=== PATIENT | male | born 1955 | race Asian ===

== ENCOUNTER 2018-08-17 11:58 | Inpatient (IN) | payer OTHER ==
[~2018-08-17] VITALS: Ht 182.9 cm; Wt 81.2 kg
[2018-08-17] MEDS: D5 1/2NS 1,000 ML IV SCH (08:50)
[~2018-08-17 11:58] MED LIST: NKM
[2018-08-17 12:00] VITALS: BP 139/94
--- NOTE | 2018-08-17 12:00 | NUR ---
ED Nurse Note: pt brought in by [facility] c/o n/v/vertigo started today, denies diarrhea or abd pain, per daughter statement, pt had flu like s/s for about a week (cough, nasal congestion). Per daughter statement, pt has hx high cholesterol, but unable to state which meds he takes and takes only occasionally. Pt AA&ox4, gcs=15, skin warm and dry, + mild jaundice , resp even and unlabored, airway intact, +n/v, productive cough w/ yellow thick mucus, active bs, ambulates w/ steady gait w/ assist. pt NSR on personnel monitor, afebrile temp 97.7, VSS, will cont monitor, daughter at the bedside.
[2018-08-17] MEDS ORDERED: cholesterol meds (12:08)
--- NOTE | 2018-08-17 12:08 | NUR ---
ED Nurse Note: per daughter, pt occasionally took cholesterol med. unable to provide name of meds.
[2018-08-17 12:17] LABS: BASOPHILS % (AUTO) 0.6 % (0.0-2.0); EOSINOPHILS % (AUTO) 0.7 % (0.0-3.0); HEMATOCRIT 41.9 % (42.0-52.0); LYMPHOCYTES % (AUTO) 13.3 % (20.0-45.0); MEAN CORPUSCULAR VOLUME 91 FL (80-99); MONOCYTES % (AUTO) 4.5 % (1.0-10.0); NEUTROPHILS % (AUTO) 80.9 % (45.0-75.0); PLATELET COUNT 285 K/UL (150-450); RED BLOOD COUNT 4.58 M/UL (4.70-6.10); RED CELL DISTRIBUTION WIDTH 11.9 % (11.6-14.8); WHITE BLOOD COUNT 13.5 K/UL (4.8-10.8)
--- NOTE | 2018-08-17 12:25 | NUR ---
ED Nurse Note: SN=[id number], ERMD notified
[2018-08-17 12:28] LABS: ANION GAP 11 mmol/L (5-15); BLOOD UREA NITROGEN 20 mg/dL (7-18); CALCIUM 9.5 MG/DL (8.5-10.1); CARBON DIOXIDE 26 MMOL/L (21-32); CHLORIDE 102 MMOL/L (98-107); CREATININE 0.8 MG/DL (0.55-1.30); SODIUM 139 MMOL/L (136-145)
[2018-08-17 12:30] VITALS: BP 143/93
[2018-08-17] MEDS ORDERED: Meclizine 25mg tab ORAL ONE ×2 (12:30→14:30)
[2018-08-17 12:33] LABS: ALANINE AMINOTRANSFERASE 27 U/L (12-78); ALKALINE PHOSPHATASE 75 U/L (46-116); ASPARTATE AMINO TRANSFERASE 20 U/L (15-37); BILIRUBIN,TOTAL 0.5 MG/DL (0.2-1.0)
--- NOTE | 2018-08-17 13:06 | NUR ---
ED Nurse Note: pt off to ct
[2018-08-17 13:11] LABS: APPEARANCE,URINE CLEAR; BILIRUBIN, URINE NEGATIVE (NEGATIVE); GLUCOSE, URINE (UA) NEGATIVE (NEGATIVE); KETONES,URINE 3+ (NEGATIVE); LEUKOCYTE ESTERASE ,URINE 1+ (NEGATIVE); NITRITE,URINE NEGATIVE (NEGATIVE); PH,URINE 7 (4.5-8.0); PROTEIN,URINE NEGATIVE (NEGATIVE); UROBILINOGEN,URINE NORMAL MG/DL (0.0-1.0)
[2018-08-17 13:25] LABS: COLOR,URINE YELLOW
--- NOTE | 2018-08-17 13:56 | Diagnostic Imaging Report ---
Indication: Headache Technique: Contiguous 5 mm thick transaxial imaging of the head obtained in a Siemens Sensation [address] scanner. Soft tissue and bone windows generated. Automatic Exposure Control was utilized. Total Dose length Product (DLP): 1495.[address] Dose Index Volume (CTDIvol): 70.38 mGy Comparison: none Findings: The size and configuration of the cortical sulci, basal cisterns, and ventricles are within normal limits for age. There is no mass effect, midline shift, or edema identified. There is no evidence of acute hemorrhage or abnormal intra-axial or extra-axial fluid collections. The bones and soft tissues are unremarkable. Mucosal thickening noted within the visualized paranasal sinuses. Impression: No mass effect, edema or acute bleed. Sinusitis The CT scanner at [facility] is accredited by the [employer] and the scans are performed using dose optimization techniques as appropriate to a performed exam including Automatic Exposure control.
--- NOTE | 2018-08-17 14:20 | NUR ---
ED Nurse Note: pt c/o dizzines and vertigo, pt states medication helped a little bit, ERMD notified.
[2018-08-17] MEDS ORDERED: Augmentin 875mg Tab ORAL ONE (14:30)
--- NOTE | 2018-08-17 14:44 | Emergency Room Report ---
History of Present Illness General Chief Complaint: Vomiting Source: Patient, Family Member Present Illness HPI This patient has had upper respiratory illness for the past week. He has had sore throat, cough, nasal congestion. Today, he developed recurrent nausea and vomiting. He states he also has a spinning sensation. This is worse with eye opening and movement. She denies fever or chills. He denies neck pain or stiffness. He denies chest pain or shortness of breath. He denies abdominal pain. He has no other complaints. Allergies: Coded Allergies: No Known Allergies (Unverified , 08/17/18) Patient History Past Medical History: none, see triage record Social History: Denies: smoking, alcohol use, drug use Reviewed Nursing Documentation: PMH: Agreed; PSxH: Agreed Nursing Documentation-PMH Past Medical History: No Stated History Review of Systems All Other Systems: negative except mentioned in HPI Physical Exam Vital Signs Date Time Temp Pulse Resp B/P (MAP) Pulse Ox O2 Delivery O2 Flow Rate FiO2 08/17/18 11:51 97.9 95 20 145/87 98 Room Air Sp02 EP Interpretation: reviewed, normal General Appearance: no apparent distress, alert, GCS 15, non-toxic Head: normocephalic, atraumatic Eyes: bilateral eye normal inspection, bilateral eye PERRL ENT: hearing grossly normal, normal pharynx, no angioedema, normal voice Neck: full range of motion, supple/symm/no masses Respiratory: chest non-tender, lungs clear, normal breath sounds, no respiratory distress, no retraction, no accessory muscle use, speaking full sentences Cardiovascular #1: regular rate, rhythm, no edema Gastrointestinal: normal bowel sounds, non tender, soft, non-distended, no guarding, no rebound Rectal: deferred Musculoskeletal: back normal, normal range of motion, non-tender Neurologic: alert, oriented x3, responsive, motor strength/tone normal, sensory intact, speech normal Psychiatric: judgement/insight normal, memory normal, mood/affect normal, no suicidal/homicidal ideation Skin: normal color, no rash, warm/dry, well hydrated Medical Decision Making Diagnostic Impression: Primary Impression: Intractable vertigo Additional Impressions: Intractable vomiting Sinusitis ER Course This patient is found to have sinusitis. He also has findings on history and physical exam consistent with positional vertigo. This appears to be peripheral. I did obtain a CT of the head which only showed findings consistent with sinusitis. He could also have a labyrinthitis. Regardless, despite treatment for vertigo, the patient could not walk and was very symptomatic and vertiginous. He is admitted for further monitoring and further control of his vertigo and vomiting. Laboratory Tests Test 08/17/18 12:04 08/17/18 12:50 White Blood Count 13.5 K/UL (4.8-10.8) H Red Blood Count 4.58 M/UL (4.70-6.10) L Hemoglobin 14.0 G/DL (14.2-18.0) L Hematocrit 41.9 % (42.0-52.0) L Mean Corpuscular Volume 91 FL (80-99) Mean Corpuscular Hemoglobin 30.6 PG (27.0-31.0) Mean Corpuscular Hemoglobin Concent 33.5 G/DL (32.0-36.0) Red Cell Distribution Width 11.9 % (11.6-14.8) Platelet Count 285 K/UL (150-450) Mean Platelet Volume 6.6 FL (6.5-10.1) Neutrophils (%) (Auto) 80.9 % (45.0-75.0) H Lymphocytes (%) (Auto) 13.3 % (20.0-45.0) L Monocytes (%) (Auto) 4.5 % (1.0-10.0) Eosinophils (%) (Auto) 0.7 % (0.0-3.0) Basophils (%) (Auto) 0.6 % (0.0-2.0) Prothrombin Time 10.4 SEC (9.30-11.50) Prothrombin Time INR 1.0 (0.9-1.1) PTT 24 SEC (23-33) Sodium Level 139 MMOL/L (136-145) Potassium Level 4.0 MMOL/L (3.5-5.1) Chloride Level 102 MMOL/L (98-107) Carbon Dioxide Level 26 MMOL/L (21-32) Anion Gap 11 mmol/L (5-15) Blood Urea Nitrogen 20 mg/dL (7-18) H Creatinine 0.8 MG/DL (0.55-1.30) Estimate Glomerular Filtration Rate > 60 mL/min (>60) Glucose Level 165 MG/DL (74-106) H Calcium Level 9.5 MG/DL (8.5-10.1) Total Bilirubin 0.5 MG/DL (0.2-1.0) Aspartate Amino Transferase (AST) 20 U/L (15-37) Alanine Aminotransferase (ALT) 27 U/L (12-78) Alkaline Phosphatase 75 U/L (46-116) Troponin I 0.000 ng/mL (0.000-0.056) Total Protein 8.0 G/DL (6.4-8.2) Albumin 4.0 G/DL (3.4-5.0) Globulin 4.0 g/dL Albumin/Globulin Ratio 1.0 (1.0-2.7) Lipase 122 U/L (73-393) Urine Color Yellow Urine Appearance Clear Urine pH 7 (4.5-8.0) Urine Specific [place] 1.010 (1.005-1.035) Urine Protein Negative (NEGATIVE) Urine Glucose (UA) Negative (NEGATIVE) Urine Ketones 3+ (NEGATIVE) H Urine Blood Negative (NEGATIVE) Urine Nitrite Negative (NEGATIVE) Urine Bilirubin Negative (NEGATIVE) Urine Urobilinogen Normal MG/DL (0.0-1.0) Urine Leukocyte Esterase 1+ (NEGATIVE) H Urine RBC 0 /HPF (0 - 0) Urine WBC 0-2 /HPF (0 - 0) Urine Squamous Epithelial Cells None /LPF (NONE/OCC) Urine Amorphous Sediment Moderate /LPF (NONE) H Urine Bacteria Few /HPF (NONE) Microbiology Date/Time Source Procedure Growth Status 08/17/18 12:04 Nasal Nares Influenza Types A,B Antigen (MARTY) - Final Complete EKG Diagnostic Results Rate: normal Rhythm: NSR ST Segments: no acute changes Rhythm Strip Diag. Results EP Interpretation: yes Rate: 70's Rhythm: NSR, no PVC's, no ectopy Last Vital Signs Date Time Temp Pulse Resp B/P (MAP) Pulse Ox O2 Delivery O2 Flow Rate FiO2 08/17/18 12:00 68 12 Room Air 08/17/18 12:00 97.7 139/94 100 Disposition: ADMITTED INPATIENT Condition: Stable Referrals: NOT CHOSEN IPA/,REFERRING (PCP) Christine Garcia DO Aug 17, 2018 14:44
[2018-08-17 15:00] VITALS: BP 133/86
--- NOTE | 2018-08-17 15:00 | NUR ---
ED Nurse Note: pt off to MRI
[2018-08-17 16:00] VITALS: BP 125/73
--- NOTE | 2018-08-17 16:09 | Diagnostic Imaging Report ---
Indication: Vertigo nausea and vomiting. Headache Technique: The head was imaged in a 1.5 Shayla magnet. Sequences obtained include sagittal and axial T1 FLAIR, axial T2 fast spin echo with fat saturation, axial T2 FLAIR, diffusion and ADC map. Comparison: CT head earlier today Findings: The size, contour, and configuration of the sulci, ventricles, and basal cisterns appear normal. Bagley-white differentiation is normal. There is no restricted diffusion. There is no mass effect, midline shift, edema, or hemorrhage. There are no abnormal extra-axial or intra-axial fluid collections. The corpus callosum is unremarkable. The brainstem and cerebellum are unremarkable. The sella is unremarkable. Bone marrow signal within the visualized osseous structures appears age appropriate and unremarkable otherwise. There is a moderate degree of mucosal thickening demonstrated within the paranasal sinuses consistent with sinusitis Impression: Negative MRI brain without contrast. Pansinusitis
--- NOTE | 2018-08-17 16:50 | NUR ---
ED Nurse Note: pt c/o nausea and dizziness, vertigo, ERMD notified.
[2018-08-17 17:00] VITALS: BP 142/75
[2018-08-17] MEDS ORDERED: LORazepam Inj 2mg/ml 1ml IV ONE (17:00)
--- NOTE | 2018-08-17 17:10 | NUR ---
ED Nurse Note: pt reports medication helps a little bit but continue to have s/s, will cont monitor, ermd aware.
--- NOTE | 2018-08-17 18:04 | NUR ---
ED Nurse Note: called [facility] to give report, unable to take pt at this time, no nurse available at this time.
--- NOTE | 2018-08-17 18:40 | NUR ---
ED Nurse Note: pt c/o vertigo and n/v, ERMD notified, pt vss, will cont monitor.
[2018-08-17] MEDS ORDERED: Metoclopramide 10mg/2ml Inj IVP STA (18:41)
[2018-08-17] MEDS ORDERED: DiphenhydrAMINE 50mg/ml Inj IVP ONE (18:45)
--- NOTE | 2018-08-17 18:55 | NUR ---
ED Nurse Note: report given to RN Melissa to continue care, pt vss, still continue to have nausea and dizziness, ERMD aware.
[2018-08-17] MEDS ORDERED: Nitroglycerin Subl 0.4mg tab SL PRN (19:15)
[2018-08-17] MEDS ORDERED: Promethazine HCl 12.5 MG in NS 55 ML IV PRN (19:15)
[2018-08-17] MEDS ORDERED: Miralax 17gm pkt ORAL PRN (19:15)
[2018-08-17] MEDS ORDERED: Morphine Sulfate 4mg/ml Inj (IV USE ONLY) IVP PRN (19:15)
[2018-08-17] MEDS ORDERED: Mylanta II UD 30ml ORAL PRN (19:15)
[2018-08-17] MEDS ORDERED: LORazepam Inj 2mg/ml 1ml IV PRN (19:15)
[2018-08-17] MEDS ORDERED: Metoclopramide 10mg/2ml Inj IVP PRN (19:15)
[2018-08-17] MEDS ORDERED: Promethazine HCl 25 MG in NS 55 ML IV PRN (19:15)
--- NOTE | 2018-08-17 19:25 | NUR ---
ED Nurse Note: pt off to [facility]
--- NOTE | 2018-08-17 19:51 | NUR ---
NURSE NOTES: patient received. patient in no acute distress at this time. patient complains of no pain at this time. patient awake and alert x4. patient IV intact patent and asymptomatic. call light within reach. bed in lowest position and locked. will continue to monitor.
[2018-08-17 20:00] VITALS: BP 112/77
[2018-08-17] MEDS: Heparin 5000 units/ml inj SUBQ SCH (20:51)
--- NOTE | 2018-08-17 23:48 | NUR ---
HAND-OFF: Report given to daylin Dougherty.
--- NOTE | 2018-08-17 23:49 | NUR ---
NURSE NOTES: Received patient in no apparent distress. A&OX4. IV site patent and intact. Family member at bedside. Bed in lowest position. Call light within reach. Will continue to monitor.
[2018-08-18] VITALS: BP 95/57
[2018-08-18 04:00] VITALS: BP 101/60
--- NOTE | 2018-08-18 07:10 | NUR ---
HAND-OFF: Report given to Digna BECKMAN.
[2018-08-18 07:39] LABS: BASOPHILS % (AUTO) 0.7 % (0.0-2.0); EOSINOPHILS % (AUTO) 1.5 % (0.0-3.0); HEMATOCRIT 36.6 % (42.0-52.0); HEMOGLOBIN 12.3 G/DL (14.2-18.0); LYMPHOCYTES % (AUTO) 22.3 % (20.0-45.0); MEAN CORPUSCULAR VOLUME 92 FL (80-99); NEUTROPHILS % (AUTO) 66.5 % (45.0-75.0); PLATELET COUNT 234 K/UL (150-450); RED BLOOD COUNT 3.99 M/UL (4.70-6.10); RED CELL DISTRIBUTION WIDTH 11.8 % (11.6-14.8); WHITE BLOOD COUNT 9.7 K/UL (4.8-10.8)
[2018-08-18 07:54] LABS: ALANINE AMINOTRANSFERASE 23 U/L (12-78); ALBUMIN 3.3 G/DL (3.4-5.0); ALBUMIN/GLOBULIN RATIO 0.9 (1.0-2.7); ALKALINE PHOSPHATASE 62 U/L (46-116); AMYLASE 53 U/L (25-115); ANION GAP 5 mmol/L (5-15); ASPARTATE AMINO TRANSFERASE 16 U/L (15-37); BILIRUBIN,TOTAL 0.5 MG/DL (0.2-1.0); BLOOD UREA NITROGEN 11 mg/dL (7-18); CALCIUM 8.9 MG/DL (8.5-10.1); CARBON DIOXIDE 29 MMOL/L (21-32); CHLORIDE 106 MMOL/L (98-107); CREATININE 0.7 MG/DL (0.55-1.30); POTASSIUM 3.4 MMOL/L (3.5-5.1); SODIUM 140 MMOL/L (136-145)
[2018-08-18 08:00] VITALS: BP 110/70
--- NOTE | 2018-08-18 08:00 | NUR ---
NURSE NOTES: Received patient in bed, resting and alert X4. Patient denies pain, only c/o dizziness when opening eyes. No signs of respiratory distress. IV intact running IVF. Bed in lowest position, call light within reach. Will continue to monitor.
[2018-08-18] MEDS: Pantoprazole Inj IV SCH (08:41)
[2018-08-18] MEDS: Heparin 5000 units/ml inj SUBQ SCH ×2 (08:41→21:20)
[2018-08-18] MEDS: D5 1/2NS 1,000 ML IV SCH (08:42)
[2018-08-18] MEDS ORDERED: Meclizine 25mg tab ORAL PRN (10:00)
--- NOTE | 2018-08-18 10:41 | Diagnostic Imaging Report ---
Indication:Abdominal pain Technique: Grayscale and duplex Doppler imaging of the abdomen performed. Comparison: None Findings: The liver is unremarkable. The gallbladder is unremarkable. The demonstrated part of the pancreas, aorta and IVC show no abnormalities. There is a cyst demonstrated within the left kidney measuring approximately 2.5 cm. The spleen is normal in size. There is no biliary ductal dilatation identified. Doppler evaluation of the main portal vein shows patency. There is no ascites. No hydronephrosis seen. Impression: No acute findings. Left renal cyst
--- NOTE | 2018-08-18 11:10 | GI Initial Consult Note ---
History of Present Illness General Date patient seen: Aug 18, 2018 Time patient seen: 10:58 Reason for Hospitalization: Vomiting Referring physician: CORNELIUS HICKMAN Reason for Consultation: Nausea and vomiting Present Illness HPI This patient has had upper respiratory illness for the past week. He has had sore throat, cough, nasal congestion. Today, he developed recurrent nausea and vomiting. He states he also has a spinning sensation. This is worse with eye opening and movement. She denies fever or chills. He denies neck pain or stiffness. He denies chest pain or shortness of breath. He denies abdominal pain. He has no other complaints. GI consulted for nausea and vomiting. ROS limited, patient currently has complaint of vertigo and is resting in bed. Family members at bedside. According to the family member the patient began having vertigo for approximately 1 day accompanied with emesis in which they state had blood. Denies any recent travel or changes in dietary habits. Also states that the patient had cataract surgery approximately 2 weeks ago. Patient denies any abdominal pain, denies any diarrhea. No history of endoscopic. Had colonoscopy approximately 2 years ago. During this admission, the patient had a negative abdominal ultrasound, negative brain MRI, and noted sinusitis on a head CT. Home Meds No Active Prescriptions or Reported Meds Med list reviewed/reconciled: Yes Allergies: Coded Allergies: No Known Allergies (Unverified , 08/17/18) Patient History Limited by: medical condition History Provided By: Family Member, Medical Record PMH Narrative Past Medical History: none, see triage record Social History: Denies: smoking, alcohol use, drug use Reviewed Nursing Documentation: PMH: Agreed; PSxH: Agreed Nursing Documentation-PM Past Medical History: No Stated History Social History: Denies: smoking, alcohol use, drug use, other Review of Systems All Other Systems: negative except mentioned in HPI Physical Exam Vital Signs Date Time Temp Pulse Resp B/P (MAP) Pulse Ox O2 Delivery O2 Flow Rate FiO2 08/17/18 11:51 97.9 95 20 145/87 98 Room Air Sp02 EP Interpretation: reviewed, normal Labs Laboratory Tests Test 08/17/18 12:04 08/17/18 12:50 08/18/18 07:00 White Blood Count 13.5 K/UL (4.8-10.8) H 9.7 K/UL (4.8-10.8) Red Blood Count 4.58 M/UL (4.70-6.10) L 3.99 M/UL (4.70-6.10) L Hemoglobin 14.0 G/DL (14.2-18.0) L 12.3 G/DL (14.2-18.0) L Hematocrit 41.9 % (42.0-52.0) L 36.6 % (42.0-52.0) L Mean Corpuscular Volume 91 FL (80-99) 92 FL (80-99) Mean Corpuscular Hemoglobin 30.6 PG (27.0-31.0) 30.8 PG (27.0-31.0) Mean Corpuscular Hemoglobin Concent 33.5 G/DL (32.0-36.0) 33.6 G/DL (32.0-36.0) Red Cell Distribution Width 11.9 % (11.6-14.8) 11.8 % (11.6-14.8) Platelet Count 285 K/UL (150-450) 234 K/UL (150-450) Mean Platelet Volume 6.6 FL (6.5-10.1) 6.7 FL (6.5-10.1) Neutrophils (%) (Auto) 80.9 % (45.0-75.0) H 66.5 % (45.0-75.0) Lymphocytes (%) (Auto) 13.3 % (20.0-45.0) L 22.3 % (20.0-45.0) Monocytes (%) (Auto) 4.5 % (1.0-10.0) 9.0 % (1.0-10.0) Eosinophils (%) (Auto) 0.7 % (0.0-3.0) 1.5 % (0.0-3.0) Basophils (%) (Auto) 0.6 % (0.0-2.0) 0.7 % (0.0-2.0) Prothrombin Time 10.4 SEC (9.30-11.50) Prothromb Time International Ratio 1.0 (0.9-1.1) Activated Partial Thromboplast Time 24 SEC (23-33) 26 SEC (23-33) Sodium Level 139 MMOL/L (136-145) 140 MMOL/L (136-145) Potassium Level 4.0 MMOL/L (3.5-5.1) 3.4 MMOL/L (3.5-5.1) L Chloride Level 102 MMOL/L (98-107) 106 MMOL/L (98-107) Carbon Dioxide Level 26 MMOL/L (21-32) 29 MMOL/L (21-32) Anion Gap 11 mmol/L (5-15) 5 mmol/L (5-15) Blood Urea Nitrogen 20 mg/dL (7-18) H 11 mg/dL (7-18) Creatinine 0.8 MG/DL (0.55-1.30) 0.7 MG/DL (0.55-1.30) Estimat Glomerular Filtration Rate > 60 mL/min (>60) > 60 mL/min (>60) Glucose Level 165 MG/DL (74-106) H 123 MG/DL (74-106) H Calcium Level 9.5 MG/DL (8.5-10.1) 8.9 MG/DL (8.5-10.1) Total Bilirubin 0.5 MG/DL (0.2-1.0) 0.5 MG/DL (0.2-1.0) Aspartate Amino Transf (AST/SGOT) 20 U/L (15-37) 16 U/L (15-37) Alanine Aminotransferase (ALT/SGPT) 27 U/L (12-78) 23 U/L (12-78) Alkaline Phosphatase 75 U/L (46-116) 62 U/L (46-116) Troponin I 0.000 ng/mL (0.000-0.056) Total Protein 8.0 G/DL (6.4-8.2) 6.9 G/DL (6.4-8.2) Albumin 4.0 G/DL (3.4-5.0) 3.3 G/DL (3.4-5.0) L Globulin 4.0 g/dL 3.6 g/dL Albumin/Globulin Ratio 1.0 (1.0-2.7) 0.9 (1.0-2.7) L Lipase 122 U/L (73-393) 127 U/L (73-393) Urine Color Yellow Urine Appearance Clear Urine pH 7 (4.5-8.0) Urine Specific [place] 1.010 (1.005-1.035) Urine Protein Negative (NEGATIVE) Urine Glucose (UA) Negative (NEGATIVE) Urine Ketones 3+ (NEGATIVE) H Urine Blood Negative (NEGATIVE) Urine Nitrite Negative (NEGATIVE) Urine Bilirubin Negative (NEGATIVE) Urine Urobilinogen Normal MG/DL (0.0-1.0) Urine Leukocyte Esterase 1+ (NEGATIVE) H Urine RBC 0 /HPF (0 - 0) Urine WBC 0-2 /HPF (0 - 0) Urine Squamous Epithelial Cells None /LPF (NONE/OCC) Urine Amorphous Sediment Moderate /LPF (NONE) H Urine Bacteria Few /HPF (NONE) Amylase Level 53 U/L (25-115) General Appearance: well appearing, no apparent distress, alert Head: normocephalic EENT: PERRL/EOMI, normal ENT inspection Neck: supple Respiratory: normal breath sounds, no respiratory distress Cardiovascular: normal rate Gastrointestinal: normal inspection, non tender, soft, normal bowel sounds, non -distended Rectal: deferred Genitourinary: deferred Musculoskeletal: normal inspection, back normal Neurologic: normal inspection, alert, oriented x3, responsive Psychiatric: normal inspection, judgement/insight normal, memory normal Skin: normal inspection, normal color, no rash, warm/dry, palpation normal, well hydrated Lymphatic: normal inspection, no adenopathy Current Medications Current Medications Medications (Trade) Dose Ordered Sig/Eve Route PRN Reason Start Time Stop Time Status Last Admin Dose Admin Acetaminophen (Tylenol) 650 mg Q4H PRN ORAL fever 08/17/18 19:15 09/16/18 19:14 Al Hydroxide/Mg Hydroxide (Mylanta II) 30 ml Q6H PRN ORAL dyspepsia 08/17/18 19:15 09/16/18 19:14 Dextrose (Dextrose 50%) 25 ml Q30M PRN IV Hypoglycemia 08/17/18 19:15 09/16/18 19:14 Dextrose (Dextrose 50%) 50 ml Q30M PRN IV Hypoglycemia 08/17/18 19:15 09/16/18 19:14 Dextrose/Sodium Chloride 1,000 ml @ 75 mls/hr [id number] IV 08/17/18 19:01 09/16/18 19:00 08/18/18 08:42 Diphenhydramine HCl (Benadryl) 25 mg Q6H PRN ORAL Itching/Pruritis 08/17/18 19:15 09/16/18 19:14 Heparin Sodium (Porcine) (Heparin 5000 units/ml) 5,000 units EVERY 12 HOURS SUBQ 08/17/18 21:00 09/16/18 20:59 08/18/18 08:41 Lorazepam (Ativan 2mg/ml 1ml) 1 mg Q4H PRN IV agitation 08/17/18 19:15 08/24/18 19:14 Meclizine HCl (Antivert) 25 mg Q6H PRN ORAL for dizziness 08/18/18 10:00 09/17/18 09:59 08/18/18 10:09 Metoclopramide HCl (Reglan) 10 mg Q6H PRN IVP severe nausea 08/17/18 19:15 09/16/18 19:14 Morphine Sulfate (Morphine Sulfate) 2 mg Q4H PRN IVP severe Pain (Pain Scale 7-10) 08/17/18 19:15 08/24/18 19:14 Nitroglycerin (Ntg) 0.4 mg Q5M PRN SL Prn Chest Pain 08/17/18 19:15 09/16/18 19:14 Ondansetron HCl (Zofran) 4 mg Q6H PRN IVP Nausea & Vomiting 08/17/18 19:15 09/16/18 19:14 Pantoprazole (Protonix) 40 mg DAILY IV 08/18/18 09:00 09/17/18 08:59 08/18/18 08:41 Polyethylene Glycol (Miralax) 17 gm HSPRN PRN ORAL Constipation 08/17/18 19:15 09/16/18 19:14 Promethazine HCl (Phenergan) 12.5 mg Q6H PRN IM refractory nausea & vomiting 08/17/18 19:45 09/16/18 19:44 Temazepam (Restoril) 15 mg HSPRN PRN ORAL Insomnia 08/17/18 19:15 08/24/18 19:14 GI: Plan Problems: (1) Vertigo (2) Sinusitis (3) Intractable vomiting Plan abdominal US negative brain MRI negative head CT >> sinusitis More likely nausea caused by vestibular vs infectious in nature >> meclizine prn , consider scopolamine patch vs promethazine for persistent vertigo. fu ENT anemia work up OB stool r/o GI bleed monitor H&H, prn transfusions bowel regime ppi fu labs abx endoscopy if necessary Discussed with Dr. Murdock. Thank you for this patient referral, we will follow. The patient was seen and examined at bedside and all new and available data was reviewed in the patients chart. I agree with the above findings, impression and plan. (Patient seen earlier today. Signature stamp does not reflect patient encounter time.). - MD Claribel [facility]ageRe[facility] PhoenixMer[facility] CLOTHES DESIGNER Aug 18, 2018 11:10
[2018-08-18 12:00] VITALS: BP 127/79
--- NOTE | 2018-08-18 13:24 | Consultation ---
History of Present Illness General Date patient seen: Aug 18, 2018 Chief Complaint: Vomiting Referring physician: CORNELIUS HICKMAN Reason for Consultation: Nausea and vomiting Present Illness HPI 62 year old with hx of chronic positional vertigo presented to ER with CC of spinning sensation. He has had upper respiratory illness for the past week. He has had sore throat, cough, nasal congestion. Today, he developed recurrent nausea and vomiting. He had recently a MRI of brain which was negative. Allergies: Coded Allergies: No Known Allergies (Unverified , 08/17/18) Medication History No Active Prescriptions or Reported Meds Patient History Healthcare decision maker N Resuscitation status Full Code Advanced Directive on File No Past Medical/Surgical History Past Medical/Surgical History: (1) Vertigo Review of Systems All Other Systems: negative except mentioned in HPI Physical Exam General Appearance: WD/WN, no apparent distress Lines, tubes and drains: peripheral, central line HEENT: normocephalic, atraumatic Neck: non-tender, normal alignment Respiratory/Chest: chest wall non-tender, lungs clear Breasts: no masses Cardiovascular/Chest: normal rate Last 24 Hour Vital Signs Date Time Temp Pulse Resp B/P (MAP) Pulse Ox O2 Delivery O2 Flow Rate FiO2 08/18/18 09:00 Room Air 08/18/18 08:00 98.7 70 20 110/70 (83) 98 08/18/18 04:00 97.9 73 20 101/60 (74) 95 08/18/18 00:00 97.9 76 20 95/57 (70) 96 08/17/18 21:00 Room Air 08/17/18 20:00 98.3 91 20 112/77 (89) 97 08/17/18 19:37 Room Air 08/17/18 19:10 97.8 80 12 140/73 99 Room Air 08/17/18 17:00 97.2 82 14 142/75 96 Room Air 08/17/18 16:00 97.6 83 12 125/73 95 Room Air 08/17/18 15:00 97.2 81 14 133/86 100 Room Air Intake and Output 08/17/18 08/18/18 18:59 06:59 Intake Total 525 ml Balance 525 ml Intake IV Total 525 ml # Voids 1 3 Laboratory Tests Test 08/18/18 07:00 White Blood Count 9.7 K/UL (4.8-10.8) Red Blood Count 3.99 M/UL (4.70-6.10) L Hemoglobin 12.3 G/DL (14.2-18.0) L Hematocrit 36.6 % (42.0-52.0) L Mean Corpuscular Volume 92 FL (80-99) Mean Corpuscular Hemoglobin 30.8 PG (27.0-31.0) Mean Corpuscular Hemoglobin Concent 33.6 G/DL (32.0-36.0) Red Cell Distribution Width 11.8 % (11.6-14.8) Platelet Count 234 K/UL (150-450) Mean Platelet Volume 6.7 FL (6.5-10.1) Neutrophils (%) (Auto) 66.5 % (45.0-75.0) Lymphocytes (%) (Auto) 22.3 % (20.0-45.0) Monocytes (%) (Auto) 9.0 % (1.0-10.0) Eosinophils (%) (Auto) 1.5 % (0.0-3.0) Basophils (%) (Auto) 0.7 % (0.0-2.0) Activated Partial Thromboplast Time 26 SEC (23-33) Sodium Level 140 MMOL/L (136-145) Potassium Level 3.4 MMOL/L (3.5-5.1) L Chloride Level 106 MMOL/L (98-107) Carbon Dioxide Level 29 MMOL/L (21-32) Anion Gap 5 mmol/L (5-15) Blood Urea Nitrogen 11 mg/dL (7-18) Creatinine 0.7 MG/DL (0.55-1.30) Estimat Glomerular Filtration Rate > 60 mL/min (>60) Glucose Level 123 MG/DL (74-106) H Calcium Level 8.9 MG/DL (8.5-10.1) Total Bilirubin 0.5 MG/DL (0.2-1.0) Aspartate Amino Transf (AST/SGOT) 16 U/L (15-37) Alanine Aminotransferase (ALT/SGPT) 23 U/L (12-78) Alkaline Phosphatase 62 U/L (46-116) Total Protein 6.9 G/DL (6.4-8.2) Albumin 3.3 G/DL (3.4-5.0) L Globulin 3.6 g/dL Albumin/Globulin Ratio 0.9 (1.0-2.7) L Amylase Level 53 U/L (25-115) Lipase 127 U/L (73-393) Height (Feet): 6 Weight (Pounds): 179 Medications Current Medications Medications (Trade) Dose Ordered Sig/Eve Route PRN Reason Start Time Stop Time Status Last Admin Dose Admin Acetaminophen (Tylenol) 650 mg Q4H PRN ORAL fever 08/17/18 19:15 09/16/18 19:14 Al Hydroxide/Mg Hydroxide (Mylanta II) 30 ml Q6H PRN ORAL dyspepsia 08/17/18 19:15 09/16/18 19:14 Dextrose (Dextrose 50%) 25 ml Q30M PRN IV Hypoglycemia 08/17/18 19:15 09/16/18 19:14 Dextrose (Dextrose 50%) 50 ml Q30M PRN IV Hypoglycemia 08/17/18 19:15 09/16/18 19:14 Dextrose/ Electrolytes 1,000 ml @ 75 mls/hr [id number] IV 08/18/18 12:30 09/17/18 12:29 Diphenhydramine HCl (Benadryl) 25 mg Q6H PRN ORAL Itching/Pruritis 08/17/18 19:15 09/16/18 19:14 Heparin Sodium (Porcine) (Heparin 5000 units/ml) 5,000 units EVERY 12 HOURS SUBQ 08/17/18 21:00 09/16/18 20:59 08/18/18 08:41 Lorazepam (Ativan 2mg/ml 1ml) 1 mg Q4H PRN IV agitation 08/17/18 19:15 08/24/18 19:14 Meclizine HCl (Antivert) 25 mg Q6H PRN ORAL for dizziness 08/18/18 10:00 09/17/18 09:59 08/18/18 10:09 Metoclopramide HCl (Reglan) 10 mg Q6H PRN IVP severe nausea 08/17/18 19:15 09/16/18 19:14 Morphine Sulfate (Morphine Sulfate) 2 mg Q4H PRN IVP severe Pain (Pain Scale 7-10) 08/17/18 19:15 08/24/18 19:14 Nitroglycerin (Ntg) 0.4 mg Q5M PRN SL Prn Chest Pain 08/17/18 19:15 09/16/18 19:14 Ondansetron HCl (Zofran) 4 mg Q6H PRN IVP Nausea & Vomiting 08/17/18 19:15 09/16/18 19:14 Pantoprazole (Protonix) 40 mg DAILY IV 08/18/18 09:00 09/17/18 08:59 08/18/18 08:41 Polyethylene Glycol (Miralax) 17 gm HSPRN PRN ORAL Constipation 08/17/18 19:15 09/16/18 19:14 Promethazine HCl (Phenergan) 12.5 mg Q6H PRN IM refractory nausea & vomiting 08/17/18 19:45 09/16/18 19:44 Temazepam (Restoril) 15 mg HSPRN PRN ORAL Insomnia 08/17/18 19:15 08/24/18 19:14 Assessment/Plan Problem List: (1) Intractable vomiting ICD Codes: R11.10 - Vomiting, unspecified SNOMED: 321788329 (2) Vertigo ICD Codes: R42 - Dizziness and giddiness SNOMED: 937697634 Assessment/Plan NPO IV fluids Neuro evaluation symptomatic treatment dvt prophylaxis Ivelisse Medel MD Aug 18, 2018 13:24
[2018-08-18] MEDS: D5 1/2NS w/KCl 20mEq 1,000 ML IV SCH (13:28)
--- NOTE | 2018-08-18 15:02 | Consultation ---
Consult Note Consult Note NEUROLOGY CONSULTATION: Full note dictated #[id number] 62 y/o, RH, K[place] with ~3-4 year history of episodic vertigo when he suddenly turns his head to the right lasting a few seconds at a time with the sensation of vertigo being a swaying motion. In addition he has also noted a mild decrease in hearing in the left ear. However on 08/17/18 he was bending forward and cleaning something on the floor and when he got up he noticed a sudden spinning sensation the spinning was constant and was so severe that he developed nausea and vomiting. He continued to have the sensation until he went to bed last night. On awakening this morning the sensation had improved but still continues. It gets worse if he lies to the right side and gets better if he lies on the left side. Of note is that he has had a cough and sore throat for the last week. ON EXAM: Nystagmus when he looks to the right side. Vertigo and nystagmus when he turns his head to the right side. IMPRESSION: Labyrinthine vertigo - viral/postviral. Prior H/O BPV. Brain MRI - Normal except for sinus mucosal thickening. REC: 1. Valium 2 mg now and then q HS. 2. When acute labyrinthine dysfunction resolves patient told to do Avila-Daroff exercises for BPV. Fredi Leonardo M.D., M.S.P.H. Fredi Leonardo MD Aug 18, 2018 15:02
--- NOTE | 2018-08-18 15:54 | Cardiology Report ---
APPROVED REPORT EKG Measurement Heart [id number] Normal sinus rhythm Possible Left atrial enlargement Nonspecific ST abnormality Abnormal ECG
[2018-08-18 16:00] VITALS: BP 117/76
--- NOTE | 2018-08-18 16:00 | Cardiology Report ---
APPROVED REPORT EKG Measurement Heart [id number] ID [id number] Normal sinus rhythm Normal ECG
--- NOTE | 2018-08-18 16:15 | History & Physical ---
History and Physical History & Physicial Freddy Camejo MD Aug 18, 2018 16:15
--- NOTE | 2018-08-18 18:01 | NUR ---
CASE MANAGEMENT: REVIEW 62/M BIBA FROM HOME CC: VOMITING SI: INTRACTABLE VERTIGO T 97.2 RR 81 RR 14 BP 145/87 SAT 98% ROOM AIR WBC 13.5 IS: ATIVAN IV X1 ZOFRAN IV X1 ANTIVERT PO X1 AUGMENTIN PO X1 ANTIVERT PO X1 ZOFRAN IV X1 NS IVF BOLUS X1 REGLAN IX X1 INTERQUAL CRITERIA MET: PATIENT ADMITTED TO MED/SURG UNIT 08/17/2018 DCP: PATIENT IS FROM HOME
--- NOTE | 2018-08-18 19:30 | Consultation ---
DATE OF CONSULTATION: 08/18/2018 NEUROLOGY CONSULTATION CONSULTING PHYSICIAN: Fredi Leonardo M.D. REQUESTING PHYSICIAN: Ivelisse Medel M.D. and Freddy Camejo M.D. HISTORY: Mr. Anjel Almanza is a 62-year-old, right-handed, [place]isw[place] gentleman, who does have a past history of vertigo for the last two to three years of an episodic nature. He usually has a sensation of vertigo lasting for few seconds at a time when he suddenly turns his head to the right side. The vertiginous sensation is the sensation of swaying from one side to the other. The symptoms lasts for a few seconds and then go away. In addition, he has also noticed some mild decrease in hearing on the left side. He was functioning relatively well until about a week ago when he developed a sore throat, some discomfort in the back of his throat, and nasal congestion associated with coughing. This problem seems to have been improving, however, on 08/17/18 he was bending forward and cleaning something on the floor and when he got up, he suddenly noticed that he had a sensation of spinning. The spinning was a constant sensation of moving round and round and was so severe that he developed nausea and then vomiting. He continued to have the sensation for hours and as a result of that, he came to the [facility] emergency room. By the time he went to bed at night, the sensation was still there, but on awakening this morning, the sensation has improved, but continues in a milder form. He has noticed that the sensation is significantly worse if he lies on his right side and gets significantly better if he lies on the left side. He denies any change in hearing, any problems with vision, weakness on one side or the other, numbness on one side or the other, problems with speech, problems with language, or other neurological symptoms associated with the vertigo. PAST MEDICAL HISTORY: Significant for episodic vertigo lasting for a few seconds at a time for the last three to four years and decreased hearing on the left side. FAMILY HISTORY: Nothing significant. PERSONAL HISTORY: Home: He lives with his . Work: He does office work. Habits: He used to smoke for approximately 20 years. He stopped smoking 15 years ago. He consumes approximately two alcoholic drinks in a week. He denies use of any illicit drugs. MEDICATIONS: Meclizine 25 mg q.6 h PRN, pantoprazole, heparin for DVT prophylaxis, Phenergan, Tylenol, morphine, MiraLAX, Zofran, Restoril, Benadryl, nitroglycerin, Reglan, and Ativan. PHYSICAL EXAMINATION: GENERAL: He is a well-developed, well-nourished, pleasant Kisw[place]ili gentleman, lying in bed with his head to the left side. VITAL SIGNS: Pulse 66/minute, blood pressure 127/79 mmHg, respirations 19/minute, and temperature 98.3 degrees Fahrenheit. HEAD: Normocephalic and atraumatic. EENT: Examination benign. NECK: No Neck rigidity was observed. NEUROLOGIC EXAMINATION: MENTAL STATUS EXAMINATION: He was awake and alert. He was oriented to person, place, and time. He was able to recall 3/3 words immediately after 1 minute and after 3 minutes. He was able to remember presidents, Trump through [employer]. His mathematical skills were good. His visuospatial function was preserved. SPEECH: He had no dysarthria. LANGUAGE: He had no aphasia in Kisw[place]ili as per his daughter who was interpreting for him. CRANIAL NERVE EXAMINATION: II: The visual da silva were intact to confrontation testing. III, IV & : External ocular movements were full and the pupils 3 mm in diameter, equal, round, regular, and reactive to light. V: He had normal facial sensations and the temporales, masseters, and pterygoids functioned normally. VII: He had normal facial expressions and no facial asymmetry. VIII: Hearing was normal to finger rubbing bilaterally. He did not exhibit any alteration in hearing to finger rubbing on one side compared to the other. He had nystagmus when he looked to the right side. In addition when his head was turned to the right side, he developed both nystagmus and vertigo. IX: The palate moved symmetrically on phonation. X: He had no hoarseness of voice. XI: The sternocleidomastoids and trapezii functioned normally. XII: The tongue was in the midline without any fasciculations or atrophy. MOTOR SYSTEM: The tone was normal in all four extremities. Examination of muscle mass revealed no focal wasting. Examination of power revealed G 5/5 power in all muscle groups. SENSORY EXAMINATION: He had intact sensations to pinprick, light touch, and graphesthesia. COORDINATION: He performed well on wnwypo-xo-sayz and glpv-dy-khlv testing. Romberg test could not be performed because even with eyes open when he was made to stand with his feet together, he felt unsteady. REFLEXES: 2+ and bilaterally symmetrical at the biceps, triceps, brachioradialis, and knees and 1+ at both ankles. The plantar responses were flexor bilaterally. STANCE: He had a minimally wide-based, but stable stance. GAIT: He walks with a minimally wide-based, but stable gait. DIAGNOSTIC IMPRESSION: 1. Mr. Anjel Almanza is a 62-year-old, right-handed, Kisw[place]ili gentleman, with an approximately 3 to 4 year history of episodic vertigo, which usually lasts for a few seconds at a time when he suddenly turns his head to the right side. This vertiginous sensation was a sensation of motion with swaying from side to side. On 08/17/2018, he suddenly developed a sensation of spinning. The spinning was quite intense and was so bothersome that he became nauseous and then started vomiting. It continued to be quite severe until the end of the day, but on awakening on 08/18/2018, he felt a little better though not completely normal. A this time he is quite comfortable if he keeps his head to the left side, however if he turns his head to the right side he becomes vertiginous and starts feeding unwell. Of note is that, he also had a viral syndrome consisting of sore throat and some nasal congestion about a week ago. 2. On neurological examination, at this time, he does have nystagmus when he looks to the right side and in addition, he becomes vertiginous and has nystagmus when he turns his head to the right side. The rest of the neurological examination is benign. 3. An MRI scan of the brain performed on 08/17/2018 was normal except for sinus mucosal thickening. 4. Laboratory data obtained thus far have revealed that on admission, his WBC count was elevated to 13,500. He had a hemoglobin of 14.0. His chemistry panel revealed that the BUN was elevated to 20 and his blood glucose was elevated to 165. 5. The patient's history and neurological examination are most compatible with ongoing labyrinthine vertigo, which is most probably of a post viral nature. The prior episodes of vertigo that the patient has experienced over the last few years most probably represents a syndrome of benign positional vertigo. RECOMMENDATIONS: 1. The patient and his family were made aware of the above mentioned findings. 2. He will be started on Valium 2 mg p.o. now and then 2 mg at bedtime for the next few days. 3. When his acute labyrinthine dysfunction resolves, the patient was told to perform Avila-Daroff exercises for his benign position vertigo. 4. The patient will be observed closely and depending on how he fares further recommendations will be given. Thank you for entrusting me with the care of Mr. Almanza. I shall follow him with you. Fredi Leonardo M.D., M.S.P.H. DR: APRIL JOB#: [id number]
--- NOTE | 2018-08-18 19:40 | NUR ---
NURSE NOTES:Patient received from Digna Aiken . Patient in bed A/A/AOX4 . Family at bedside. Patient denies any pain at this time . no sob no n/v noted at this time . RAC g#20 D5 1/2 NS with KCL 20 MEQ @75 CC . infusing well . safety maintain call light within reach . bed in low position at all times . will continue to monitor patient .
--- NOTE | 2018-08-18 19:40 | NUR ---
HAND-OFF: Report given to JOVANA Haile.
[2018-08-18 20:00] VITALS: BP 109/74
--- NOTE | 2018-08-18 20:45 | History and Physical Report ---
DATE OF ADMISSION: 08/17/2018 CHIEF COMPLAINT: Dizziness and loss of balance. HISTORY OF PRESENT ILLNESS: This is a 62-year-old gentleman, denies any past medical history and past surgical history except cataract surgery, who was presented to the hospital after a week of sore throat, cough, nasal congestion, and upper respiratory infection. The patient developed recurrent nausea and vomiting associated with dizziness and room spinning. The patient has worsening symptoms when he opens the eyes or movement. He denies any fever or chills. Denies any neck rigidity or stiffness. Denies any chest pain or shortness of breath. Shortly after initial evaluation in the emergency, the patient was admitted to the hospital with dizziness and loss of balance possible due to the intractable vertigo. PAST MEDICAL HISTORY: None. PAST SURGICAL HISTORY: None, except bilateral cataract extraction. MEDICATIONS: At home, none. SOCIAL HISTORY: Denies any smoking, alcohol, or drugs. FAMILY HISTORY: Noncontributory. REVIEW OF SYSTEMS: Mostly as above. Denies any dysuria, frequency, or hematuria. Denies any hemoptysis or hematochezia. Denies any bright red blood per rectum. PHYSICAL EXAMINATION: VITAL SIGNS: On admission, temperature 97.9, pulse 95, respirations 20, and blood pressure 145/87. GENERAL: The patient is awake and responsive, in no acute distress. HEAD AND NECK: Pupils are equal and reactive to light. Extraocular movements are intact. Neck was supple. No JVD. LUNGS: Good air entry. No wheezes or rales. HEART: S1 and S2. Regular rhythm. No gallops. ABDOMEN: Soft, nondistended, and nontender. Positive bowel sounds. EXTREMITIES: No cyanosis, clubbing, or edema. NEUROLOGIC: Cranial nerves II to XII grossly intact. Moves all four extremities. Gait is unsteady. The patient has nystagmus when he looks to the right side. LABORATORY AND DIAGNOSTIC DATA: On admission from the ER, WBC of 13, hemoglobin 14, hematocrit 41, and platelet 285,000. Sodium 139, potassium 4.0, chloride 102, bicarbonate 26, BUN 20, and creatinine 0.8. First troponin 0.00. Lipase is 122. PT of 10, INR 1.0, and PTT 24. Urinalysis, +3 ketones, +1 leukocyte, and moderate amorphic sedimentation. The patient had influenza A and B negative. CT of the head was done, showed no mass effect, edema or acute bleeding. Ultrasound of the abdomen, no acute findings. Left renal cyst. MRI of the brain was done, shows a negative brain without contrast. There is no abnormal extra-axial or intra-axial fluid collection. ASSESSMENT: 1. Dizziness and room spinning, most likely secondary to the labyrinthitis vertigo, possible viral. 2. Dehydration. PLAN: 1. Admit the patient to medical floor. 2. We will follow up with the laboratory in the morning. 3. IV hydration. 4. Discussed with extensively at bedside. 5. Follow up with Dr. Fredi Leonardo, Neurology and Dr. Medel, Pulmonary Critical Care. 6. Code status, Full Code. 7. DVT prophylaxis, heparin subcutaneous. Freddy Camejo M.D. DR: RODRIGO JOB#: [id number] CC:
[2018-08-19] VITALS: BP 112/70
[2018-08-19] MEDS: D5 1/2NS w/KCl 20mEq 1,000 ML IV SCH ×2 (01:31→15:10)
[2018-08-19 04:00] VITALS: BP 108/71
[2018-08-19 05:47] LABS: BASOPHILS % (AUTO) 0.5 % (0.0-2.0); EOSINOPHILS % (AUTO) 2.7 % (0.0-3.0); HEMATOCRIT 37.6 % (42.0-52.0); HEMOGLOBIN 12.5 G/DL (14.2-18.0); MEAN CORPUSCULAR VOLUME 92 FL (80-99); MONOCYTES % (AUTO) 6.8 % (1.0-10.0); PLATELET COUNT 223 K/UL (150-450); RED BLOOD COUNT 4.06 M/UL (4.70-6.10); RED CELL DISTRIBUTION WIDTH 11.9 % (11.6-14.8); WHITE BLOOD COUNT 10.2 K/UL (4.8-10.8)
[2018-08-19 05:51] LABS: ANION GAP 6 mmol/L (5-15); BLOOD UREA NITROGEN 11 mg/dL (7-18); CALCIUM 8.5 MG/DL (8.5-10.1); CARBON DIOXIDE 28 MMOL/L (21-32); CHLORIDE 108 MMOL/L (98-107); CREATININE 0.7 MG/DL (0.55-1.30); POTASSIUM 3.9 MMOL/L (3.5-5.1); SODIUM 142 MMOL/L (136-145)
[2018-08-19 06:19] LABS: PHOSPHORUS 2.4 MG/DL (2.5-4.9)
--- NOTE | 2018-08-19 07:40 | NUR ---
HAND-OFF: Report given to Colette Aiken patient in stable condition.
--- NOTE | 2018-08-19 07:45 | NUR ---
NURSE NOTES: Report received from outgoing [employer], rounds made. Patient sleeping left lateral position in bed, calm. No distress noted. Family member sleeping at bedside. Call light in reach, bed in lowest position. Will continue to assess.
[2018-08-19 08:00] VITALS: BP 117/81
[2018-08-19] MEDS: Pantoprazole Inj IV SCH (09:07)
[2018-08-19] MEDS: Heparin 5000 units/ml inj SUBQ SCH (09:09)
--- NOTE | 2018-08-19 11:22 | NUR ---
CASE MANAGEMENT: REVIEW 08/19/2018 SI: INTRACTABLE VERTIGO T 98.2 HR 70 RR 18 B/P 117/81 SATS 100% ON RA CL 108 GLU 109 PHOS 2.4 IS:IVF @ 75 mL/HR VALIUM PO QHS PROTONIX IV QD MED/SURG STATUS DCP: PATIENT IS FROM HOME
[2018-08-19 12:00] VITALS: BP 118/82
--- NOTE | 2018-08-19 12:10 | Pulmonology Progress Note ---
Assessment/Plan Assessment/Plan ASSESSMENT Labyrinthitis vertigo Recent viral infection Hypokalemia resolved Mild anemia PLAN OF CARE Med Surg floor neuro een and evaluated CT head negative MRI of the brain negative except evidence evidence of sinusitis in view of recent viral infection ,likely labyrinthitis vertigo as per neurology symptomatic treatment with meclizine as needed and Valium prn DVT and GI prophylaxis potassium replaced, stable hemoglobin hematocrit closely monitored with goal to keep hemoglobin above 7 abd ultrasound was done due to complaint of abdominal pain ; no acute findings abdominal pain resolved bowel regimen instituted family at the bedside ; discussed with patient's daughter patient wants to go home continue meclizine as needed and start Avila Daroff exercise (explained by neurologist in detail to patient and hid daughter) case discussed and evaluated by supervising physician Subjective Allergies: Coded Allergies: No Known Allergies (Unverified , 08/17/18) Subjective pt still with dizziness family at bedisde Objective Last 24 Hour Vital Signs Date Time Temp Pulse Resp B/P (MAP) Pulse Ox O2 Delivery O2 Flow Rate FiO2 08/19/18 08:00 98.2 70 18 117/81 (93) 100 08/19/18 04:00 97.4 69 18 108/71 (83) 97 08/19/18 00:00 98.5 68 18 112/70 (84) 97 08/18/18 21:00 Room Air 08/18/18 20:00 97.9 74 19 109/74 (86) 95 08/18/18 16:00 97.6 83 19 117/76 (90) 95 Intake and Output 08/18/18 08/19/18 18:59 06:59 Intake Total 861 ml 1660 ml Balance 861 ml 1660 ml Intake Oral 486 ml 760 ml IV Total 375 ml 900 ml # Voids 3 5 General Appearance: WD/WN, no acute distress HEENT: normocephalic, atraumatic, anicteric, mucous membranes moist, PERRL Respiratory/Chest: lungs clear, no respiratory distress, no accessory muscle use Cardiovascular: normal peripheral pulses, normal rate Abdomen: normal bowel sounds, soft, non tender, non distended Extremities: no edema Neurologic/Psychiatric: alert, oriented x 3, responsive Musculoskeletal: normal muscle bulk Microbiology Date/Time Source Procedure Growth Status 08/17/18 12:04 Nasal Nares Influenza Types A,B Antigen (MARTY) - Final Complete Laboratory Tests 08/19/18 04:45: White Blood Count 10.2, Red Blood Count 4.06L, Hemoglobin 12.5L, Hematocrit 37.6L, Mean Corpuscular Volume 92, Mean Corpuscular Hemoglobin 30.7, Mean Corpuscular Hemoglobin Concent 33.2, Red Cell Distribution Width 11.9, Platelet Count 223, Mean Platelet Volume 6.8, Neutrophils (%) (Auto) 62.0, Lymphocytes (% ) (Auto) 28.0, Monocytes (%) (Auto) 6.8, Eosinophils (%) (Auto) 2.7, Basophils ( %) (Auto) 0.5, Sodium Level 142, Potassium Level 3.9, Chloride Level 108H, Carbon Dioxide Level 28, Anion Gap 6, Blood Urea Nitrogen 11, Creatinine 0.7, Estimat Glomerular Filtration Rate > 60, Glucose Level 109H, Calcium Level 8.5, Phosphorus Level 2.4L, Magnesium Level 1.9 Current Medications Medications (Trade) Dose Ordered Sig/Eve Route PRN Reason Start Time Stop Time Status Last Admin Dose Admin Acetaminophen (Tylenol) 650 mg Q4H PRN ORAL fever 08/17/18 19:15 09/16/18 19:14 Al Hydroxide/Mg Hydroxide (Mylanta II) 30 ml Q6H PRN ORAL dyspepsia 08/17/18 19:15 09/16/18 19:14 Dextrose (Dextrose 50%) 25 ml Q30M PRN IV Hypoglycemia 08/17/18 19:15 09/16/18 19:14 Dextrose (Dextrose 50%) 50 ml Q30M PRN IV Hypoglycemia 08/17/18 19:15 09/16/18 19:14 Dextrose/ Electrolytes 1,000 ml @ 75 mls/hr [id number] IV 08/18/18 12:30 09/17/18 12:29 08/19/18 01:31 Diazepam (Valium) 2 mg BEDTIME ORAL 08/18/18 21:00 08/25/18 20:59 08/18/18 21:16 Diphenhydramine HCl (Benadryl) 25 mg Q6H PRN ORAL Itching/Pruritis 08/17/18 19:15 09/16/18 19:14 Heparin Sodium (Porcine) (Heparin 5000 units/ml) 5,000 units EVERY 12 HOURS SUBQ 08/17/18 21:00 09/16/18 20:59 08/19/18 09:09 Lorazepam (Ativan 2mg/ml 1ml) 1 mg Q4H PRN IV agitation 08/17/18 19:15 08/24/18 19:14 Meclizine HCl (Antivert) 25 mg Q6H PRN ORAL for dizziness 08/18/18 10:00 09/17/18 09:59 08/18/18 10:09 Metoclopramide HCl (Reglan) 10 mg Q6H PRN IVP severe nausea 08/17/18 19:15 09/16/18 19:14 Morphine Sulfate (Morphine Sulfate) 2 mg Q4H PRN IVP severe Pain (Pain Scale 7-10) 08/17/18 19:15 08/24/18 19:14 Nitroglycerin (Ntg) 0.4 mg Q5M PRN SL Prn Chest Pain 08/17/18 19:15 09/16/18 19:14 Ondansetron HCl (Zofran) 4 mg Q6H PRN IVP Nausea & Vomiting 08/17/18 19:15 09/16/18 19:14 Pantoprazole (Protonix) 40 mg DAILY IV 08/18/18 09:00 09/17/18 08:59 08/19/18 09:07 Polyethylene Glycol (Miralax) 17 gm HSPRN PRN ORAL Constipation 08/17/18 19:15 09/16/18 19:14 Promethazine HCl (Phenergan) 12.5 mg Q6H PRN IM refractory nausea & vomiting 08/17/18 19:45 09/16/18 19:44 Temazepam (Restoril) 15 mg HSPRN PRN ORAL Insomnia 08/17/18 19:15 08/24/18 19:14 Soledad Jones NP Aug 19, 2018 12:10
--- NOTE | 2018-08-19 12:44 | Neurology Progress Note ---
Interim History Interim History Interim History Mr. Almanza feels much better today. He is still mildly vertiginous. He is still more uncomfortable when he turns his head to the right side. He feels that the Valium has definitely helped. He denies any new neurologic symptoms. Review of Systems Neuro Review of Systems Benign. Objective Physical Exam Last Vital Signs Date Time Temp Pulse Resp B/P (MAP) Pulse Ox O2 Delivery O2 Flow Rate FiO2 08/19/18 08:00 98.2 70 18 117/81 (93) 100 08/18/18 21:00 Room Air Laboratory Tests Test 08/19/18 04:45 White Blood Count 10.2 K/UL (4.8-10.8) Red Blood Count 4.06 M/UL (4.70-6.10) L Hemoglobin 12.5 G/DL (14.2-18.0) L Hematocrit 37.6 % (42.0-52.0) L Mean Corpuscular Volume 92 FL (80-99) Mean Corpuscular Hemoglobin 30.7 PG (27.0-31.0) Mean Corpuscular Hemoglobin Concent 33.2 G/DL (32.0-36.0) Red Cell Distribution Width 11.9 % (11.6-14.8) Platelet Count 223 K/UL (150-450) Mean Platelet Volume 6.8 FL (6.5-10.1) Neutrophils (%) (Auto) 62.0 % (45.0-75.0) Lymphocytes (%) (Auto) 28.0 % (20.0-45.0) Monocytes (%) (Auto) 6.8 % (1.0-10.0) Eosinophils (%) (Auto) 2.7 % (0.0-3.0) Basophils (%) (Auto) 0.5 % (0.0-2.0) Sodium Level 142 MMOL/L (136-145) Potassium Level 3.9 MMOL/L (3.5-5.1) Chloride Level 108 MMOL/L (98-107) H Carbon Dioxide Level 28 MMOL/L (21-32) Anion Gap 6 mmol/L (5-15) Blood Urea Nitrogen 11 mg/dL (7-18) Creatinine 0.7 MG/DL (0.55-1.30) Estimat Glomerular Filtration Rate > 60 mL/min (>60) Glucose Level 109 MG/DL (74-106) H Calcium Level 8.5 MG/DL (8.5-10.1) Phosphorus Level 2.4 MG/DL (2.5-4.9) L Magnesium Level 1.9 MG/DL (1.8-2.4) Neurologic Exam Objective PHYSICAL EXAMINATION: GENERAL: He is a well-developed, well-nourished, pleasant [place] gentleman, lying in bed with his head to the left side. HEAD: Normocephalic and atraumatic. EENT: Examination benign. NECK: No Neck rigidity was observed. NEUROLOGIC EXAMINATION: MENTAL STATUS EXAMINATION: He was awake and alert. He was oriented to person, place, and time. He was able to recall 3/3 words immediately after 1 minute and after 3 minutes. He was able to remember presidents, Trump through [employer]. His mathematical skills were good. His visuospatial function was preserved. SPEECH: He had no dysarthria. LANGUAGE: He had no aphasia in Macedonian as per his daughter who was interpreting for him. CRANIAL NERVE EXAMINATION: II: The visual da silva were intact to confrontation testing. III, IV & : External ocular movements were full and the pupils 3 mm in diameter, equal, round, regular, and reactive to light. V: He had normal facial sensations and the temporales, masseters, and pterygoids functioned normally. VII: He had normal facial expressions and no facial asymmetry. VIII: Hearing was normal to finger rubbing bilaterally. He did not exhibit any alteration in hearing to finger rubbing on one side compared to the other. He had nystagmus when he looked to the right side. When his head was turned to the right side, he developed nystagmus but no vertigo. His nystagmus was beating at a much slower rate than yesterday. IX: The palate moved symmetrically on phonation. X: He had no hoarseness of voice. XI: The sternocleidomastoids and trapezii functioned normally. XII: The tongue was in the midline without any fasciculations or atrophy. MOTOR SYSTEM: The tone was normal in all four extremities. Examination of muscle mass revealed no focal wasting. Examination of power revealed G 5/5 power in all muscle groups. SENSORY EXAMINATION: He had intact sensations to pinprick, light touch, and graphesthesia. COORDINATION: He performed well on [id number] and [id number]-ct-[id number] testing. Romberg test could not be performed because even with eyes open when he was made to stand with his feet together, he felt unsteady. REFLEXES: 2+ and bilaterally symmetrical at the biceps, triceps, brachioradialis , and knees and 1+ at both ankles. The plantar responses were flexor bilaterally. STANCE: He had a minimally wide-based, but stable stance. GAIT: He walked with a minimally wide-based, but stable gait. Impression/Recommendations Diagnostic Impression 1. Mr. Anjel Almanza is a 62-year-old, right-handed, [place] gentleman, with an approximately 3 to 4 year history of episodic vertigo, which usually lasts for a few seconds at a time when he suddenly turns his head to the right side. This vertiginous sensation was a sensation of motion with swaying from side to side. On 08/17/2018, he suddenly developed a sensation of spinning. The spinning was quite intense and was so bothersome that he became nauseous and then started vomiting. It continued to be quite severe until the end of the day, but on awakening on 08/18, he felt a little better though not completely normal. Later on 08/18/18 he was quite comfortable if he kept his head to the left side, however if he turned his head to the right side he became vertiginous and started feeding unwell. Of note is that, he also had a viral syndrome consisting of sore throat and some nasal congestion about a week ago. 2. He feels much better today. He is still mildly vertiginous. He is still more uncomfortable when he turns his head to the right side. He feels that the Valium has definitely helped. He denies any new neurologic symptoms. 3. On neurological examination, at this time, he does have nystagmus when he looks to the right side and in addition, he has nystagmus when he turns his head to the right side. His nystagmus was beating at a much slower rate than yesterday. The rest of the neurological examination is benign. 4. An MRI scan of the brain performed on 08/17/2018 was normal except for sinus mucosal thickening. 5. Laboratory data obtained thus far have revealed that on admission, his WBC count was elevated to 13,500. He had a hemoglobin of 14.0. His chemistry panel revealed that the BUN was elevated to 20 and his blood glucose was elevated to 165. 6. The patient's history and neurological examination are most compatible with ongoing labyrinthine vertigo, which is most probably of a post viral nature. 7. The prior episodes of vertigo that the patient has experienced over the last few years most probably represents a syndrome of benign positional vertigo. Recommendations 1. Continue present management. 2. Continue Valium 2 mg PO at bedtime for the next few days. 3. When his acute labyrinthine dysfunction resolves, he was told to perform Avila-Daroff exercises for his benign position vertigo. 4. No contraindications to being discharged home. Fredi Leonardo M.D., M.S.P.H. Fredi Leonardo MD Aug 19, 2018 12:44
--- NOTE | 2018-08-19 14:51 | Discharge Summary ---
Discharge Summary Hospital Course Date of Admission Aug 17, 2018 at 17:13 Date of Discharge Admitting Diagnosis Intractable vertigo KRUPA Almanza is a 62 year old male who was admitted on Aug 17, 2018 at 17:13 for Intractable Vertigo Hospital Course Physical Exam General: No acute distress, awake and alert HEENT: NCAT, sclera anicteric, PERRL, EOMI. Neck: Supple, no significant jugular venous distention, Lungs: Good inspiratory effort, no accessory muscle use, clear to auscultation bilaterally, no Wheeze or Rales. Heart: Regular rate and rhythm, normal S1/S2, no murmurs/gallops Abdomen: soft, nontender, nondistended. Normoactive bowel sounds. / Rectal: Refused and deferred. Extremities: No Cyanosis , clubbing or edema. Neuro: A&O x 3, Able to move all extremities Skin: warm, no rashes or lesions Psych: Normal mood and affect Last 24 Hour Vital Signs Date Time Temp Pulse Resp B/P (MAP) Pulse Ox O2 Delivery O2 Flow Rate FiO2 08/19/18 12:00 98.4 70 18 118/82 (94) 100 08/19/18 08:00 98.2 70 18 117/81 (93) 100 08/19/18 04:00 97.4 69 18 108/71 (83) 97 08/19/18 00:00 98.5 68 18 112/70 (84) 97 08/18/18 21:00 Room Air 08/18/18 20:00 97.9 74 19 109/74 (86) 95 08/18/18 16:00 97.6 83 19 117/76 (90) 95 Discharge Discharge Disposition Patient was discharged to Freddy Camejo MD Aug 19, 2018 14:51
--- NOTE | 2018-08-19 16:00 | NUR ---
NURSE NOTES: Discharge instructions and prescription x1 reviewed with patient and daughters. RAC IV discontinued, no s/s of bleeding. Instructed on safety with transfers and ambulation, slow position change and hydration. Patient discharged home with daughters, sent down via WC in stable condition. All belongings, discharge instructions, prescription x1 sent with patient/daughters. Patient remains safe. Prescription for new home medication per Dr. Aram Camejo as follows: Antivert 25 mg PO TID #30 and Augmentin 875 mg PO BID #14. Advise no driving on meds.
--- NOTE | 2018-08-19 17:49 | Internal Med Progress Note ---
Subjective Date of Service: Aug 19, 2018 Physician Name Serafin Crisostomo Attending Physician Freddy Camejo MD Allergies: Coded Allergies: No Known Allergies (Unverified , 08/17/18) ROS Limited/Unobtainable: No Constitutional: Reports: no symptoms HEENT: Reports: no symptoms Cardiovascular: Reports: no symptoms Respiratory: Reports: no symptoms Gastrointestinal/Abdominal: Reports: no symptoms Genitourinary: Reports: no symptoms Neurologic/Psychiatric: Reports: no symptoms Subjective 62 YO M admitted with vertigo. Cover for Int [employer] Objective Last Vital Signs Date Time Temp Pulse Resp B/P (MAP) Pulse Ox O2 Delivery O2 Flow Rate FiO2 08/19/18 12:00 98.4 70 18 118/82 (94) 100 08/19/18 09:00 Room Air Laboratory Tests Test 08/19/18 04:45 White Blood Count 10.2 K/UL (4.8-10.8) Red Blood Count 4.06 M/UL (4.70-6.10) L Hemoglobin 12.5 G/DL (14.2-18.0) L Hematocrit 37.6 % (42.0-52.0) L Mean Corpuscular Volume 92 FL (80-99) Mean Corpuscular Hemoglobin 30.7 PG (27.0-31.0) Mean Corpuscular Hemoglobin Concent 33.2 G/DL (32.0-36.0) Red Cell Distribution Width 11.9 % (11.6-14.8) Platelet Count 223 K/UL (150-450) Mean Platelet Volume 6.8 FL (6.5-10.1) Neutrophils (%) (Auto) 62.0 % (45.0-75.0) Lymphocytes (%) (Auto) 28.0 % (20.0-45.0) Monocytes (%) (Auto) 6.8 % (1.0-10.0) Eosinophils (%) (Auto) 2.7 % (0.0-3.0) Basophils (%) (Auto) 0.5 % (0.0-2.0) Sodium Level 142 MMOL/L (136-145) Potassium Level 3.9 MMOL/L (3.5-5.1) Chloride Level 108 MMOL/L (98-107) H Carbon Dioxide Level 28 MMOL/L (21-32) Anion Gap 6 mmol/L (5-15) Blood Urea Nitrogen 11 mg/dL (7-18) Creatinine 0.7 MG/DL (0.55-1.30) Estimat Glomerular Filtration Rate > 60 mL/min (>60) Glucose Level 109 MG/DL (74-106) H Calcium Level 8.5 MG/DL (8.5-10.1) Phosphorus Level 2.4 MG/DL (2.5-4.9) L Magnesium Level 1.9 MG/DL (1.8-2.4) Microbiology Date/Time Source Procedure Growth Status 08/17/18 12:04 Nasal Nares Influenza Types A,B Antigen (MARTY) - Final Complete Intake and Output 08/18/18 08/19/18 18:59 06:59 Intake Total 861 ml 1660 ml Balance 861 ml 1660 ml Intake Oral 486 ml 760 ml IV Total 375 ml 900 ml # Voids 3 5 Objective PHYSICAL EXAMINATION: GENERAL: The patient is awake and responsive, in no acute distress. HEAD AND NECK: Pupils are equal and reactive to light. Extraocular movements are intact. Neck was supple. No JVD. LUNGS: Good air entry. No wheezes or rales. HEART: S1 and S2. Regular rhythm. No gallops. ABDOMEN: Soft, nondistended, and nontender. Positive bowel sounds. EXTREMITIES: No cyanosis, clubbing, or edema. NEUROLOGIC: Cranial nerves II to XII grossly intact. Moves all four extremities. Gait is unsteady. The patient has nystagmus when he looks to the right side. Assessment/Plan Assessment/Plan ASSESSMENT: 1. Dizziness and room spinning, most likely secondary to the labyrinthitis vertigo, possible viral. 2. Dehydration. PLAN: 1. Admit the patient to medical floor. 2. We will follow up with the laboratory in the morning. 3. IV hydration. 4. Discussed with extensively at bedside. 5. Follow up with Dr. Fredi Leonardo, Neurology and Dr. Medel, Pulmonary Critical Care. 6. Code status, Full Code. 7. DVT prophylaxis, heparin subcutaneous. Discharge home today Serafin Crisostomo MD Aug 19, 2018 17:49
--- NOTE | 2018-08-19 19:35 | General Progress Note ---
Assessment/Plan Assessment/Plan GI: Plan Problems: (1) Vertigo (2) Sinusitis (3) Intractable vomiting Plan abdominal US negative brain MRI negative head CT >> sinusitis More likely nausea caused by vestibular vs infectious in nature >> meclizine prn , consider scopolamine patch vs promethazine for persistent vertigo. fu ENT anemia work up OB stool r/o GI bleed monitor H&H, prn transfusions bowel regime ppi fu labs abx endoscopy if necessary Subjective Allergies: Coded Allergies: No Known Allergies (Unverified , 08/17/18) Subjective Seen this am family at bedside some vertigo and nausea but tolerating PO Objective Last 24 Hour Vital Signs Date Time Temp Pulse Resp B/P (MAP) Pulse Ox O2 Delivery O2 Flow Rate FiO2 08/19/18 12:00 98.4 70 18 118/82 (94) 100 08/19/18 09:00 Room Air 08/19/18 08:00 98.2 70 18 117/81 (93) 100 08/19/18 04:00 97.4 69 18 108/71 (83) 97 08/19/18 00:00 98.5 68 18 112/70 (84) 97 08/18/18 21:00 Room Air 08/18/18 20:00 97.9 74 19 109/74 (86) 95 Intake and Output 08/18/18 08/19/18 18:59 06:59 Intake Total 861 ml 1660 ml Balance 861 ml 1660 ml Intake Oral 486 ml 760 ml IV Total 375 ml 900 ml # Voids 3 5 Laboratory Tests 08/19/18 04:45: White Blood Count 10.2, Red Blood Count 4.06L, Hemoglobin 12.5L, Hematocrit 37.6L, Mean Corpuscular Volume 92, Mean Corpuscular Hemoglobin 30.7, Mean Corpuscular Hemoglobin Concent 33.2, Red Cell Distribution Width 11.9, Platelet Count 223, Mean Platelet Volume 6.8, Neutrophils (%) (Auto) 62.0, Lymphocytes (% ) (Auto) 28.0, Monocytes (%) (Auto) 6.8, Eosinophils (%) (Auto) 2.7, Basophils ( %) (Auto) 0.5, Sodium Level 142, Potassium Level 3.9, Chloride Level 108H, Carbon Dioxide Level 28, Anion Gap 6, Blood Urea Nitrogen 11, Creatinine 0.7, Estimat Glomerular Filtration Rate > 60, Glucose Level 109H, Calcium Level 8.5, Phosphorus Level 2.4L, Magnesium Level 1.9 Height (Feet): 6 Weight (Pounds): 179 Objective WDWN NCAT Supple CTA RR Abd soft no edema Aram Jurado MD Aug 19, 2018 19:35
--- NOTE | 2018-08-20 00:15 | Discharge Summary ---
DATE OF ADMISSION: 08/17/2018 DATE OF DISCHARGE: 08/19/2018 HISTORY OF PRESENT ILLNESS: This is a 62-year-old gentleman, denies any past medical history and past surgical history except cataract surgery, who was presented to the hospital complaining about dizziness and loss of balance. Shortly after initial evaluation, the patient was admitted to the hospital with labyrinthitis. Throughout the hospital course, the patient was consulted with Dr. Fredi Leonardo from Neurology and had an extensive workup that included MRI of the brain was essentially unremarkable and the patient subsequently was discharged home today to be followed as an outpatient within one week. FINAL DIAGNOSES: 1. Pansinusitis. 2. Labyrinthitis. 3. Vertigo. MEDICATION ON DISCHARGE: Continue discharge medication list. ACTIVITY: As tolerated. DIET: Regular diet. FOLLOWUP: The patient was advised to follow up in my office within one week. The patient will be discharged home on Antivert at 25 mg p.o. t.i.d. #30 as well as Augmentin 875 mg p.o. b.i.d. #14. Advised the patient as well as the daughter at the bedside that the patient cannot drive while taking medications. He understood that and advised him if he drives he is going to be responsible, if he get in accident, he will be responsible for the accident. Freddy Camejo M.D. DR: GAETANO JOB#: [id number] CC:
--- NOTE | 2018-08-20 11:01 | NUR ---
CASE MANAGEMENT: CM review and clinical information (face sheet/ ER MD Note/ H&P/ DC summary) faxed to RAMONE JORGE @ [phone]. REF# [id number].
== END 2018-08-19 17:00 | disposition home or self-care (01) | DRG 149 ==
LOC: EDBD 11:58 → EMR 12:40 → 3E 17:13 → EDBEDREQ 17:51
DX: H83.09 Labyrinthitis, unspecified ear (principal); J32.4 Chronic pansinusitis; H81.10 Benign paroxysmal vertigo, unspecified ear; Z87.891 Personal history of nicotine dependence; E87.6 Hypokalemia; D64.9 Anemia, unspecified
CPT/HCPCS: 36415; 70450; 70551; 76700; 80048; 80053; 81003; 82150; 82962; 83690; 83735; 84100; 84484; 85025; 85610; 85730; 86710; 93005; 96361; 96374; 96375; 96376; 99285; J2405; J2765